=== PATIENT | male | born 1980 ===

== ENCOUNTER 2025-01-08 12:00 | Inpatient (IN) | payer OTHER ==
[~2025-01-08] VITALS: Ht 152.4 cm; Wt 109.3 kg
[2025-01-08] MEDS ORDERED: PRO-FAST SR37.5 MG PO (13:43)
[2025-01-08] MEDS ORDERED: VITAMIN D (13:43)
[2025-01-08 13:44] VITALS: BP 138/68
[2025-01-08] MEDS ORDERED: TROKENDI XR50 MG PO (13:44)
[2025-01-12] MEDS ORDERED: METRONIDAZOLE/SODIUM CHLORIDE 500 MG/100 ML PIGGYBACK IV ONE (06:45)
[2025-01-12] MEDS ORDERED: CEFTRIAXONE SODIUM 2,000 MG VIAL ONE (06:45)
[2025-01-12] MEDS ORDERED: BUPIVACAINE HCL 30 ML VIAL IJ ONE (08:00)
[2025-01-12] MEDS ORDERED: LIDOCAINE HCL 1% 20 ML VIAL IJ ONE (08:00)
[2025-01-12] MEDS ORDERED: SUGAMMADEX SODIUM 200 MG/2 ML VIAL IV ONE ×2 (09:16→09:49)
[2025-01-12] MEDS ORDERED: TAMSULOSIN HCL 0.4 MG CAP PO SCH (10:03)
[2025-01-12] MEDS ORDERED: METRONIDAZOLE/SODIUM CHLORIDE 500 MG/100 ML PIGGYBACK IV SCH (10:03)
[2025-01-12] MEDS ORDERED: MORPHINE SULFATE 4 MG/ML CARTRIDGE IV PRN (10:15)
[2025-01-12] MEDS ORDERED: RINGERS SOLUTION,LACTATED 1,000 ML IV SCH (10:15)
[2025-01-12] MEDS ORDERED: ONDANSETRON HCL 2 MG/ML VIAL IV PRN (10:15)
[2025-01-12] MEDS ORDERED: OxyCODONE HCL 5 MG TABLET (ROXICODONE) PO PRN (10:15)
[2025-01-12] MEDS ORDERED: MORPHINE SULFATE 4 MG/ML VIAL IV ONE ×2 (10:45→11:15)
[2025-01-12] MEDS ORDERED: ENALAPRILAT DIHYDRATE 1.25 MG/ML VIAL IV PRN (12:00)
[2025-01-12] MEDS ORDERED: ACETAMINOPHEN 500 MG GEL..CAP PO SCH (12:00)
[2025-01-12 13:20] LABS: ABG PH 7.343 (7.35-7.45); ABG PO2 92.5 mmHg (80-100); ABG pCO2 39.5 mmHg (35-45); BASE EXCESS -4.3 mmol/l; SaO2 96.5 %; Tco2 22.2 mmol/l
[2025-01-12 13:46] LABS: allen test SATISFACTORY; mode ROOM AIR; o2 22 %; puncture site RADIAL RIGHT
[2025-01-12] MEDS ORDERED: HYOSCYAMINE SULFATE 0.125 MG TAB.SUBL SL SCH (17:00)
[2025-01-12] MEDS ORDERED: GABAPENTIN 300 MG CAPSULE PO SCH (17:00)
[2025-01-12 17:20] VITALS: BP 127/81; O2SAT 98
[2025-01-12] MEDS ORDERED: CIPROFLOXACIN IN 5 % DEXTROSE 400 MG/200 ML PIGGYBAG IV SCH (21:00)
[2025-01-12] MEDS ORDERED: FAMOTIDINE/PF 20 MG/2 ML VIAL IV PUSH SCH (21:00)
[2025-01-13 00:44] VITALS: BP 122/69; O2SAT 98
[2025-01-13 07:58] LABS: HEMATOCRIT 41.4 % (39.0-48.0); HEMOGLOBIN 13.8 g/dL (13-16.00); MEAN CELL VOLUME 80.5 fL (80.0-100.00); MEAN CORPUSCULAR HEMOGLOBIN 26.8 pg (27.00-32.0); MEAN CORPUSCULAR HGB CONC 33.2 g/dl (32.0-36.0); PLATELET COUNT 178 K/uL (150-450); RED BLOOD COUNT 5.15 M/uL (4.00-6.00); RED CELL DISTRIBUTION WIDTH 14.8 % (11.5-14.5)
[2025-01-13 08:00] VITALS: BP 113/68; O2SAT 99
[2025-01-13 08:22] LABS: ALBUMIN 3.4 gm/dL (3.4-5.0); CALCIUM 8.3 mg/dL (8.5-10.1); CREATININE SERUM 1.01 mg/dL (0.70-1.30); GFR 80.25; PHOSPHOROUS 2.7 mg/dL (2.5-4.9); POTASSIUM 4.28 mEq/L (3.5-5.1)
[2025-01-13] MEDS ORDERED: LACTOBACILLUS ACIDOPHILUS 1 CAP CAP PO SCH (09:00)
[2025-01-13 16:08] VITALS: BP 130/80; O2SAT 96
[2025-01-13] MEDS ORDERED: ENOXAPARIN SODIUM 40 MG/0.4 ML SYRINGE SUBCUTANEO SCH (17:00)
[2025-01-14 01:17] VITALS: BP 119/80; O2SAT 97
[2025-01-14 07:48] LABS: HEMATOCRIT 41.3 % (39.0-48.0); HEMOGLOBIN 13.6 g/dL (13-16.00); MEAN CELL VOLUME 80.8 fL (80.0-100.00); MEAN CORPUSCULAR HEMOGLOBIN 26.6 pg (27.00-32.0); PLATELET COUNT 158 K/uL (150-450); RED BLOOD COUNT 5.11 M/uL (4.00-6.00); RED CELL DISTRIBUTION WIDTH 14.9 % (11.5-14.5)
[2025-01-14 07:57] LABS: EOS % 0.51 % (0.0-7.00)
[2025-01-14 08:15] LABS: CALCIUM 8.5 mg/dL (8.5-10.1); CREATININE SERUM 1.03 mg/dL (0.70-1.30); GFR 78.45; MAGNESIUM 2.2 mg/dL (1.8-2.4); PHOSPHOROUS 2.4 mg/dL (2.5-4.9); POTASSIUM 4.07 mEq/L (3.5-5.1)
[2025-01-14 08:43] VITALS: BP 118/86; O2SAT 97
[2025-01-14] MEDS ORDERED: ENOXAPARIN SODIUM 40 MG/0.4 ML SYRINGE SUBCUTANEO SCH (09:00)
[2025-01-14] MEDS ORDERED: POTASSIUM PHOS,M-BASIC-D-BASIC 3 MM/ML VIAL IV ONE (14:00)
[2025-01-14 16:25] VITALS: BP 146/88; O2SAT 99
[2025-01-15] VITALS: BP 122/83; O2SAT 97
[2025-01-15 08:00] VITALS: BP 126/84; O2SAT 97
[2025-01-15 09:27] VITALS: O2SAT 89
[2025-01-15] MEDS ORDERED: HYOSCYAMINE0.125 M1 SL (15:37)
[2025-01-15] MEDS ORDERED: INTESTINEX680 M1 PO (15:37)
[2025-01-15 16:57] VITALS: BP 139/80; O2SAT 95
== END 2025-01-15 17:15 | disposition home or self-care (01) | DRG 331 ==
LOC: O/R 01-12 05:27 → SURH 01-12 05:27
PROVIDERS: Internal Medicine Geriatric Medicine; ADMIT Surgery; ATTEND Surgery
PROC: 0DBP4ZZ Excision of Rectum, Percutaneous Endoscopic Approach (ICD-10-PCS; 2025-01-12)
PROC: 0DJD8ZZ Inspection of Lower Intestinal Tract, Via Natural or Artificial Opening Endoscopic (ICD-10-PCS; 2025-01-12)
PROC: 0DTN4ZZ Resection of Sigmoid Colon, Percutaneous Endoscopic Approach (ICD-10-PCS; principal; 2025-01-12 12:30)
PROC: 4A12X4Z Monitoring of Cardiac Electrical Activity, External Approach (ICD-10-PCS; 2025-01-13)
DX: K57.20 Diverticulitis of large intestine with perforation and abscess without bleeding (principal); R59.0 Localized enlarged lymph nodes; K66.0 Peritoneal adhesions (postprocedural) (postinfection); R10.9 Unspecified abdominal pain; E83.39 Other disorders of phosphorus metabolism; R19.4 Change in bowel habit; K52.9 Noninfective gastroenteritis and colitis, unspecified; R93.5 Abnormal findings on diagnostic imaging of other abdominal regions, including retroperitoneum; G47.30 Sleep apnea, unspecified